=== PATIENT | female | born 1970 | race Caucasian/White ===

== ENCOUNTER 2017-11-15 23:29 | Emergency (ER) | payer SELFPAY ==
[~2017-11-15] VITALS: Ht 162.6 cm; Wt 63.6 kg
[~2017-11-15 23:29] MED LIST: META800 PO; Z.0.NO CURRENT MEDS
[2017-11-15 23:31] VITALS: BP 140/72; PULSE 84; RESP 16; TEMP 97.6; O2SAT 98
[2017-11-16] MEDS ORDERED: LIDOCAINE HCL 1% 50 ML VIAL INFIL ONE
[2017-11-16] MEDS ORDERED: BUPIVACAINE HCL PF 0.5% 10 ML VIAL INFIL ONE
[2017-11-16] MEDS ORDERED: CEPHALEXIN MONOHYDRATE 500 MG CAP PO ONE
[2017-11-16] MEDS ORDERED: SULFAMETHOXAZOLE-TRIMETHOPRIM DS 800-160 MG TAB PO ONE
--- NOTE | 2017-11-16 00:01 | PD ---
HPI Chief Complaint: Pain: Acute or Chronic Time Seen by Provider: 23:59 Travel History International Travel<30 days: No Contact w/Intl Traveler<30days: No Traveled to known affect area: No History of Present Illness HPI 47-year-old female presents for evaluation of left thumb pain. Symptoms started 3 days ago. Pain is throbbing, constant, worse with palpation. Denies trauma, fevers or chills. No other complaints. PFSH Past Medical History Medical History: Denies Significant Hx Tetanus Vaccination: Unknown Influenza Vaccination: No ?: Not Past Surgical History Tonsillectomy: Yes Social History Alcohol Use: No Tobacco Use: No Substance Use: No Allergies-Medications (Allergen,Severity, Reaction): Coded Allergies: No Known Allergies (Verified Adverse Reaction, Unknown, 11/15/17) Reported Meds & Prescriptions Reported Meds & Active Scripts Active Keflex (Cephalexin) 500 Mg Capsule 500 Mg PO Q8H 10 Days Bactrim DS (Sulfamethoxazole-Trimethoprim) 800-160 Mg Tab 1 Tab PO BID Review of Systems General / Constitutional: No: Fever, Chills Musculoskeletal: Positive: Other (left thumb throbbing pain) Physical Exam Narrative GENERAL: Well-nourished female in no acute distress SKIN: Warm and dry. HEAD: Atraumatic. Normocephalic. EYES: Pupils equal and round. No scleral icterus. No injection or drainage. ENT: No nasal bleeding or discharge. Mucous membranes pink and moist. NECK: Trachea midline. No JVD. CARDIOVASCULAR: Regular rate and rhythm. No murmur appreciated. RESPIRATORY: No accessory muscle use. Clear to auscultation. Breath sounds equal bilaterally. MUSCULOSKELETAL: Left thumb soft tissue swelling localized to the left thumb pad , tender to palpation, fluctuant. No drainage. NEUROLOGICAL: Awake and alert. No obvious cranial nerve deficits. Motor grossly within normal limits. Normal speech. Data Data Last Documented VS Vital Signs Date Time Temp Pulse Resp B/P (MAP) Pulse Ox O2 Delivery O2 Flow Rate FiO2 11/15/17 23:31 97.6 84 16 140/72 (94) 98 Room Air Orders Orders Lidocaine 1% Inj (50 Ml) (Xylocaine 1% I (11/16/17 00:00) Bupivacaine Pf 0.5% Inj (Marcaine Pf 0.5 (11/16/17 00:00) Wound Culture And Gram Stain (11/15/17 23:57) Sulfamet-Trimeth Ds 800-160 Mg (Bactrim (11/16/17 00:00) Cephalexin (Keflex) (11/16/17 00:00) [facility] Medical Decision Making Medical Screen Exam Complete: Yes Emergency Medical Condition: Yes Medical Record Reviewed: Yes Differential Diagnosis Felon, paronychia, cellulitis, abscess, herpetic julio, contusion, fracture Narrative Course Examination is consistent with felon and paronychia of the left thumb. Plan is for incision and drainage for which the patient verbally consents. Started on Bactrim and Keflex. Procedures Procedure Narrative INCISION AND DRAINAGE OF FELON: The area was prepped and was sterilely draped. Digital block performed using 1% lidocaine and 0.5% Marcaine. The area was properly anesthetized. A number 11 scalpel was used to make a 0.5 -cm incision across the area of the abscess on the medial aspect left thumb pad. Cultures were obtained. The abscess was drained an irrigated with normal saline. Diagnosis Primary Impression: Felon of finger of left hand Additional Instructions: Warm compresses several times a day 10-15 minutes at a time. Medication as prescribed. Tylenol or Motrin for pain. Follow-up with primary care physician as needed and return for any acutely new or worsening symptoms. Med/Other Pt SpecificInfo: Prescription(s) given Scripts Cephalexin (Keflex) 500 Mg Capsule 500 MG PO Q8H for Infection for 10 Days, #30 CAP 0 Refills Prov: Jerilyn Wang MD 11/16/17 Sulfamethoxazole-Trimethoprim (Bactrim DS) 800-160 Mg Tab 1 TAB PO BID for Infection, #20 TAB 0 Refills Prov: Jerilyn Wang MD 11/16/17 Disposition: 01 DISCHARGE HOME Condition: Stable Cristian Harkins Nov 16, 2017 00:01
[2017-11-16] MEDS ORDERED: BACT800T5 PO (00:14)
[2017-11-16] MEDS ORDERED: CEPH-460 PO (00:14)
== END 2017-11-16 00:31 | disposition home or self-care (01) ==
LOC: NEPD 23:29
DX: L03.012 Cellulitis of left finger (principal)
CPT/HCPCS: 26011; 86403; 87070; 87077; 87186

== ENCOUNTER 2018-05-06 09:15 | Emergency (ER) | payer SELFPAY ==
[~2018-05-06] VITALS: Ht 162.6 cm; Wt 61.5 kg
[~2018-05-06 09:15] MED LIST changes: +BACT800T5 PO; +CEPH-460 PO; -META800 PO; -Z.0.NO CURRENT MEDS
[2018-05-06 09:28] VITALS: BP 141/75; PULSE 78; RESP 18; TEMP 98; O2SAT 100
[2018-05-06] MEDS ORDERED: CEPH-460 PO (09:46)
--- NOTE | 2018-05-06 09:46 | PD ---
HPI Chief Complaint: Skin Problem Time Seen by Provider: 09:40 Travel History International Travel<30 days: No Contact w/Intl Traveler<30days: No Traveled to known affect area: No History of Present Illness HPI 47-year-old female presents emergency department for evaluation of a bilateral lower extremity rash that is been present since yesterday. Says that she woke up with a rash and since then they have been tender to palpation, nonpruritic. They have not changed in size or shape. They have not migrated to other parts of body. She denies fevers or chills. Denies nausea, vomiting or diarrhea. Denies upper respiratory type symptoms. Denies shortness of breath or chest pain. Denies recent contacts or travel. Denies new foods, soaps, lotions. She has never had this rash before. She denies chronic medical issues medication use. She has no other complaints today. PFSH Past Medical History ?: Unknown Past Surgical History Tonsillectomy: Yes Social History Alcohol Use: No Tobacco Use: No Substance Use: No Allergies-Medications (Allergen,Severity, Reaction): Coded Allergies: No Known Allergies (Verified Adverse Reaction, Unknown, 05/06/18) Reported Meds & Prescriptions Reported Meds & Active Scripts Active Keflex (Cephalexin) 500 Mg Cap 500 Mg PO Q8H 7 Days Review of Systems Except as stated in HPI: all other systems reviewed are Neg Physical Exam Narrative GENERAL: Well-nourished, well-developed patient, in NAD SKIN: Focused skin assessment warm/dry. No rashes or lesions. Bilateral lower extremities-scattered faintly erythematous papular rash with lesions ranging from 5 mm to 1-1/2 cm, blanching, almost in a linear pattern up the leg. No scaling or umbilication is present. No edema or lymph angiopathic spread. HEAD: Normocephalic. Atraumatic. EYES: No scleral icterus. No injection or drainage. THROAT: No pharyngeal injection, exudates, or tonsillar hypertrophy. Airway is patent. NECK: Supple, trachea midline. No JVD or lymphadenopathy. No meningismus. CARDIOVASCULAR: Regular rate and rhythm without murmurs, gallops, or rubs. RESPIRATORY: Breath sounds equal bilaterally. No accessory muscle use. No wheezes, rales, or rhonchi MUSCULOSKELETAL: No cyanosis, or edema. BACK: Nontender without obvious deformity. No CVA tenderness. Data Data Last Documented VS Vital Signs Date Time Temp Pulse Resp B/P (MAP) Pulse Ox O2 Delivery O2 Flow Rate FiO2 05/06/18 09:28 98.0 78 18 141/75 (97) 100 Orders Orders Ed Discharge Order (05/06/18 09:48) MDM Medical Decision Making Medical Screen Exam Complete: Yes Emergency Medical Condition: Yes Differential Diagnosis Bug bites, nonspecific rash, contact dermatitis, erythema nodosum Narrative Course 47-year-old female presents emergency department for evaluation of a bilateral lower extremity rash that is been present since yesterday. Says that she woke up with a rash and since then they have been tender to palpation, nonpruritic. They have not changed in size or shape. They have not migrated to other parts of body. She denies fevers or chills. Denies nausea, vomiting or diarrhea. Denies upper respiratory type symptoms. Denies shortness of breath or chest pain. Denies recent contacts or travel. Denies new foods, soaps, lotions. She has never had this rash before. She denies chronic medical issues medication use. She has no other complaints today. Vital signs are stable. Physical exam findings consistent with a nonspecific rash. Erythema nodosum is possibility however, there are no prodromal symptoms. Patient has no medical history that she admits today. She takes the medication. Because of the pattern of the rash of her leg and almost linear fashion, will prescribe antibiotics were possible development of infection. Do not believe that she is infection at this point but advised her that if her symptoms persist or worsen that she should start the antibiotics as discussed. I strongly advise her to follow-up with a operating room rn especially if her symptoms do improve. She states understanding and will comply. Diagnosis Primary Impression: Rash and nonspecific skin eruption Referrals: [facility] Additional Instructions: As discussed, follow-up with a operating room rn. If the rash worsens or persists over the next 2 days I recommend starting antibiotics. I highly recommend he follow-up with the primary care physician as well to establish care. Scripts Cephalexin (Keflex) 500 Mg Cap 500 MG PO Q8H for Infection for 7 Days, #21 CAP 0 Refills Prov: Russel Stephen MD 05/06/18 Disposition: 01 DISCHARGE HOME Condition: Stable Rabia Shannon May 06, 2018 09:46
== END 2018-05-06 10:25 | disposition home or self-care (01) ==
LOC: NEPK 09:15
DX: R21 Rash and other nonspecific skin eruption (principal)
CPT/HCPCS: 99283